=== PATIENT | female | born 1950 | race Caucasian/White ===

== ENCOUNTER 2016-11-11 20:30 | Observation (INO) | payer OTHER ==
[2016-11-11] MEDS ORDERED: ONDANSETRON 4 MG/2 ML VIAL ONE (20:50)
[2016-11-11] MEDS ORDERED: NS 1,000 ML IV ONE ×2 (20:55→21:02)
[2016-11-11] MEDS ORDERED: ONDANSETRON 4 MG/2 ML VIAL IVP ONE (20:55)
[2016-11-11] MEDS ORDERED: METOCLOPRAMIDE 10 MG/2 ML VIAL IVP ONE (21:19)
[2016-11-11 21:35] LABS: % IMMATURE GRANULYOCYTES 0.2 % (0.0-1.1); ABSOLUTE IMMATURE GRANULOCYTES 0.02 10^3/uL (0.00-0.10); ADD DIFF? NO; ADD MORPH? NO; ADD SCAN? NO; ATYPICAL LYMPHOCYTE FLAG 0 (0-99); FRAGMENT RBC FLAG 0 (0-99); HEMATOCRIT 43.7 % (38.0-47.0); LEFT SHIFT FLG 0 (0-99); LIPEMIA HEMOLYSIS FLAG 90 (0-99); MEAN CELL HEMOGLOBIN CONCENTR. 34.3 g/dL (32.4-36.7); MEAN CELL VOLUME 90.3 fL (81.5-99.8); MEAN PLATELET VOLUME 10.1 fL (8.7-11.7); PLATELET CLUMPS FLAG 0 (0-99); PLATELET COUNT 373 10^3/uL (150-400); RED BLOOD CELL COUNT 4.84 10^6/uL (4.18-5.33); RED CELL DISTRIBUTION WIDTH 13.2 % (11.5-15.2)
[2016-11-11] MEDS ORDERED: PROMETHAZINE HCL 25 MG/ML INJ ONE (21:38)
[2016-11-11 21:41] LABS: ANION GAP 12 mEq/L (8-16); CALCIUM 9.8 mg/dL (8.5-10.4); CARBON DIOXIDE 25 mEq/l (22-31); CHLORIDE 102 mEq/L (97-110); CREATININE 0.9 mg/dL (0.6-1.0); GLOMERULAR FILTRATION RATE > 60; GLUCOSE 114 mg/dL (70-100); POTASSIUM 4.7 mEq/L (3.5-5.2); SODIUM 139 mEq/L (134-144)
[2016-11-11 21:51] LABS: INR 1.05 (0.83-1.16); PROTIME(PATIENT) 13.6 SEC (12.0-15.0)
[2016-11-11] MEDS ORDERED: PROMETHAZINE HCL 25 MG/ML INJ IVP ONE (21:55)
[2016-11-11 22:03] LABS: COLOR PALE YELLOW; LEUKOCYTE ESTERASE,URINE TRACE (NEGATIVE); NITRITE,URINE NEGATIVE (NEGATIVE)
[2016-11-11 22:12] LABS: BACTERIA TRACE /hpf (NONE SEEN); MUCUS TRACE /lpf (NONE-1+)
--- NOTE | 2016-11-11 22:18 | EDPHY ---
H & P Stated Complaint: 48 hours of N and V, no diarrhea HPI/ROS: CHIEF COMPLAINT: Nausea vomiting HISTORY OF PRESENT ILLNESS: tooth extraction on the left upper molar on Wednesday morning. She was discharged home in stable condition with pain medications. Raymond well until yesterday morning when she woke up with significant nausea and vomiting. She has had intractable vomiting since that time with multiple episodes throughout the day. Unable to keep down any liquids or solids. No bloody emesis. No constipation or diarrhea. She has a headache that she attributes to the vomiting. She has no fever or chills. No chest pain or shortness of breath. No cough or congestion. No abdominal pain other than with the discomfort and vomiting. No bleeding from any site including the surgical bed. No other associated complaints or modifying factors. REVIEW OF SYSTEMS: Ten systems reviewed and are negative unless otherwise noted in the HPI EXAMINATION General Appearance: Alert, no distress Head: normocephalic, atraumatic Eyes: Pupils equal and round, no conjunctival pallor or injection ENT, Mouth: Mucous membranes Dry. No lesions. Uvula is midline. surgical bed is clean with sutures intact. No dehiscence. No purulence. No surrounding erythema. Neck: Normal inspection, supple, non-tender . painless passive and active range of motion in all planes. No meningismus. Respiratory: Lungs are clear to auscultation . No wheezing rhonchi or crackles. Cardiovascular: Regular rate and rhythm . No murmur. No gallop. Pulses are symmetric in the radial and DP. Gastrointestinal: Abdomen is soft and nontender . No distention Neurological: A&O, nonfocal, Strength is 5/5 in all limbs. Skin: Warm and dry, no rash . No petechiae purpura. Unable to examine the nails due to [place]. Extremities: Nontender, no pedal edema Psychiatric: Mood and affect normal DIFFERENTIAL DIAGNOSES: Including but not limited to Intractable nausea and vomiting, dehydration, postoperative complication, hypokalemia, hyponatremia MDM: 9:30 p.m.. Significant nausea and vomiting postprocedure. She has no fever, no white count, no evidence of pneumonia by examination. No evidence of infection of the mouth. She has no petechiae. She has no murmur on examination. She is feeling nauseated despite Zofran and Reglan, thus we will administer her promethazine. 11:00 p.m. I have re-evaluated this patient. They remain hemodynamically stable and in no distress. However she still remains nauseated and has no improvement or symptoms of any kind. There is no evidence of endocarditis or infection by examination. I am not certain where her source of nausea vomiting is, but her laboratory studies are stable. She is in no acute distress. She is hemodynamically stable. She has intractable nausea vomiting I will admit her for further care. 11:30 p.m. I have discussed the case with the hospitalist, Dr. Spangler. We will admit her for observation for intractable nausea and vomiting. She remains hemodynamically stable and she does not need telemetry. 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 SUPERVISION: Patient was evaluated in conjunction with the supervising physician. Please see their note for details. Source: Patient Exam Limitations: No limitations - Personal History Current Tetanus/Diphtheria Vaccine: Yes Current Tetanus Diphtheria and Acellular Pertussis (TDAP): Yes Tetanus Vaccine Date: within 5 years - Medical/Surgical History Hx Asthma: No Hx Chronic Respiratory Disease: No Hx Diabetes: No Hx Cardiac Disease: No Hx Renal Disease: No Hx Cirrhosis: No Hx Alcoholism: No Hx HIV/AIDS: No Hx Splenectomy or Spleen Trauma: No Other PMH: OSTEOPOROSIS, foot op, hand op, right eye op, SKIN CA., fecal transplant - Social History Smoking Status: Never smoked Constitutional: Initial Vital Signs Temperature (C) 98.4 F 11/11/16 20:35 Heart Rate 105 H 11/11/16 20:35 Respiratory Rate 16 11/11/16 20:35 Blood Pressure 116/95 H 11/11/16 20:35 O2 Sat (%) 98 11/11/16 20:35 O2 Delivery Mode Room Air O2 (L/minute) 2 Allergies/Adverse Reactions: Sulfa (Sulfonamide Antibiotics) Allergy (Mild, Verified 12/26/11 07:50) Rash clindamycin Allergy (Verified 05/05/14 16:30) caused CDIFF Home Medications: Medication Instructions Recorded ALPRAZolam [Xanax] 0.25 mg PO 05/05/14 Zofran 11/11/16 traMADol 11/11/16 Medical Decision Making - Data Points Laboratory Results: Laboratory Results 11/11/16 20:45 11/11/16 20:45 11/11/16 11/11/1617 21:50 21:41 20:45 WBC 8.29 10^3/uL (3.80-9.50) RBC 4.84 10^6/uL (4.18-5.33) Hgb 15.0 g/dL (12.6-16.3) Hct 43.7 % (38.0-47.0) MCV 90.3 fL (81.5-99.8) MCH 31.0 pg (27.9-34.1) MCHC 34.3 g/dL (32.4-36.7) RDW 13.2 % (11.5-15.2) Plt Count 373 10^3/uL (150-400) MPV 10.1 fL (8.7-11.7) Neut % (Auto) 78.1 H % (39.3-74.2) Lymph % (Auto) 16.8 % (15.0-45.0) [place] % (Auto) 3.9 L % (4.5-13.0) Eos % (Auto) 0.2 L % (0.6-7.6) Baso % (Auto) 0.8 % (0.3-1.7) Nucleat RBC Rel Count 0.0 % (0.0-0.2) Absolute Neuts (auto) 6.47 10^3/uL (1.70-6.50) Absolute Lymphs (auto) 1.39 10^3/uL (1.00-3.00) Absolute Monos (auto) 0.32 10^3/uL (0.30-0.80) Absolute Eos (auto) 0.02 L 10^3/uL (0.03-0.40) Absolute Basos (auto) 0.07 10^3/uL (0.02-0.10) Absolute Nucleated RBC 0.00 10^3/uL (0-0.01) Immature Gran % 0.2 % (0.0-1.1) Immature Gran # 0.02 10^3/uL (0.00-0.10) PT 13.6 SEC (12.0-15.0) INR 1.05 (0.83-1.16) APTT 27.0 SEC (23.0-38.0) VBG Lactic Acid 1.1 mmol/L (0.7-2.1) Sodium 139 mEq/L (134-144) Potassium 4.7 mEq/L (3.5-5.2) Chloride 102 mEq/L (97-110) Carbon Dioxide 25 mEq/l (22-31) Anion Gap 12 mEq/L (8-16) BUN 15 mg/dL (7-23) Creatinine 0.9 mg/dL (0.6-1.0) Estimated GFR > 60 Glucose 114 H mg/dL (70-100) Calcium 9.8 mg/dL (8.5-10.4) Total Bilirubin Pending AST Pending ALT Pending Alkaline Phosphatase Pending Total Protein Pending Albumin Pending Lipase Pending Urine Color PALE YELLOW Urine Appearance CLEAR Urine pH 6.0 (5.0-7.5) Ur Specific [place] 1.004 (1.002-1.030) Urine Protein NEGATIVE (NEGATIVE) Urine Ketones TRACE H (NEGATIVE) Urine Blood NEGATIVE (NEGATIVE) Urine Nitrate NEGATIVE (NEGATIVE) Urine Bilirubin NEGATIVE (NEGATIVE) Urine Urobilinogen NEGATIVE EU (0.2-1.0) Ur Leukocyte Esterase TRACE H (NEGATIVE) Urine RBC 1-3 /hpf (0-3) Urine WBC 1-3 /hpf (0-3) Ur Epithelial Cells NONE SEEN /lpf (NONE-1+) Urine Bacteria TRACE H /hpf (NONE SEEN) Urine Mucus TRACE /lpf (NONE-1+) Ur Culture Indicated? INDICATED H (NI) Urine Glucose NEGATIVE (NEGATIVE) Influenza Typ A,B (DFA) Pending Medications Given: Discontinued Medications Sodium Chloride (Ns) 1,000 mls @ 0 mls/hr IV EDNOW ONE PRN Reason: Wide Open Stop: 11/11/16 20:56 Last Admin: 11/11/16 20:56 Dose: 1,000 mls Sodium Chloride (Ns) 1,000 mls @ 0 mls/hr IV ONCE ONE PRN Reason: Wide Open Stop: 11/11/16 21:03 Last Admin: 11/11/16 21:21 Dose: 1,000 mls Metoclopramide HCl (Reglan Injection) 10 mg IVP EDNOW ONE Stop: 11/11/16 21:20 Last Admin: 11/11/16 21:31 Dose: 10 mg Ondansetron HCl (Zofran) 4 mg IVP EDNOW ONE Stop: 11/11/16 20:56 Last Admin: 11/11/16 20:56 Dose: 4 mg Promethazine HCl (Phenergan Injection) 12.5 mg IVP EDNOW ONE Stop: 11/11/16 21:56 Last Admin: 11/11/16 21:56 Dose: 12.5 mg Departure - Departure Disposition: [facility] Acute Clinical Impression: Dehydration Intractable vomiting with nausea Qualifiers: Vomiting type: unspecified Qualifier Code: (R11.2) Nausea with vomiting, unspecified Condition: Good
[2016-11-11 22:22] LABS: ALANINE AMINOTRANSFERASE 34 IU/L (9-52); ALBUMIN 4.4 g/dL (3.5-5.0); ALKALINE PHOSPHATASE 67 IU/L (38-126); ASPARTATE AMINOTRANSFERASE 32 IU/L (14-46); BILIRUBIN,TOTAL 0.8 mg/dL (0.1-1.4)
--- NOTE | 2016-11-11 23:05 | DX ---
PA and lateral chest. November 11, 2016. Clinical History: Nausea and vomiting. Dehydration. Comparison Study: January 13, 2005.. Findings: The lungs are clear. No pleural disease identified. Heart size is normal. Visualized osseous structures appear normal. Impression: Stable negative chest.
[2016-11-12] MEDS ORDERED: TEMAZEPAM 15 MG CAP PO PRN
[2016-11-12] MEDS ORDERED: METOCLOPRAMIDE 10 MG/2 ML VIAL IVP PRN
[2016-11-12] MEDS ORDERED: ONDANSETRON DISINTEGRATING 4 MG TAB PO PRN
[2016-11-12] MEDS ORDERED: PROMETHAZINE HCL 25 MG/ML INJ IVP PRN
[2016-11-12] MEDS ORDERED: ONDANSETRON 4 MG/2 ML VIAL IVP PRN
[2016-11-12] MEDS ORDERED: PROMETHAZINE HCL 25 MG TAB PO PRN
[2016-11-12] MEDS ORDERED: ACETAMINOPHEN 325 MG TAB PO PRN
[2016-11-12] MEDS ORDERED: hydrALAZINE 10 MG TAB PO PRN (00:04)
--- NOTE | 2016-11-12 00:09 | PDGENHP ---
History and Physical - Chief Complaint nausea/vomiting - History of Present Illness 66 yo female with no significant past medical history presents to ED with nausea and vomiting. She had a tooth extracted 2 days ago. This was planned to be a root canal, but she wound up with an extraction. She denies pain or drainage from the extraction site. She denies fevers. She had a mild headache earlier, but no headache at this time. No vision changes. No CP or SOB. No abdominal pain or diarrhea. She has been taking Tramadol and Zofran for pain control at home, last dose of Tramadol this morning. In the ED, she received Zofran, Phenergan, and Reglan without relief. She is admitted to the hospital for further management. History Information - Allergies/Home Medication List Allergies/Adverse Reactions: Sulfa (Sulfonamide Antibiotics) Allergy (Mild, Verified 12/26/11 07:50) Rash clindamycin Allergy (Verified 05/05/14 16:30) caused CDIFF Home Medications: ALPRAZolam [Xanax] 0.25 mg PO 05/05/14 [Last Taken Unknown] Zofran 11/11/16 [Last Taken Unknown] traMADol 11/11/16 [Last Taken Unknown] I have personally reviewed and updated: family history, medical history, social history, surgical history - Past Medical History Additional medical history: Osteoporosis, h/o fecal transplant - Surgical History Additional surgical history: foot surgery, hand surgery, eye surgery, recent tooth extraction - Family History Positive for: non-pertinent - Social History Smoking Status: Never smoked Alcohol Use: None Drug Use: None Review of Systems ROS: 10pt was reviewed & negative except for what was stated in HPI & below Physical Exam Temp Pulse Resp BP Pulse Ox 37.1 C 99 18 135/100 H 98 11/11/16 22:00 11/11/16 22:00 11/11/16 22:00 11/11/16 22:00 11/11/16 22:00 Constitutional: no apparent distress Eyes: PERRL Ears, Nose, Mouth, Throat: moist mucous membranes, other (left upper tooth extraction site without obvious abscess, no drainage) Cardiovascular: regular rate and rhythym, no murmur, rub, or gallop Respiratory: no respiratory distress, clear to auscultation Gastrointestinal: normoactive bowel sounds, soft, non-tender abdomen Skin: warm Neurologic: AAOx3 Psychiatric: interacting appropriately Lab Data & Imaging Review 11/11/16 20:45 11/11/16 20:45 WBC 8.29 10^3/uL (3.80-9.50) 11/11/16 20:45 RBC 4.84 10^6/uL (4.18-5.33) 11/11/16 20:45 Hgb 15.0 g/dL (12.6-16.3) 11/11/16 20:45 Hct 43.7 % (38.0-47.0) 11/11/16 20:45 MCV 90.3 fL (81.5-99.8) 11/11/16 20:45 MCH 31.0 pg (27.9-34.1) 11/11/16 20:45 MCHC 34.3 g/dL (32.4-36.7) 11/11/16 20:45 RDW 13.2 % (11.5-15.2) 11/11/16 20:45 Plt Count 373 10^3/uL (150-400) 11/11/16 20:45 MPV 10.1 fL (8.7-11.7) 11/11/16 20:45 Neut % (Auto) 78.1 % (39.3-74.2) H 11/11/16 20:45 Lymph % (Auto) 16.8 % (15.0-45.0) 11/11/16 20:45 [place] % (Auto) 3.9 % (4.5-13.0) L 11/11/16 20:45 Eos % (Auto) 0.2 % (0.6-7.6) L 11/11/16 20:45 Baso % (Auto) 0.8 % (0.3-1.7) 11/11/16 20:45 Nucleat RBC Rel Count 0.0 % (0.0-0.2) 11/11/16 20:45 Absolute Neuts (auto) 6.47 10^3/uL (1.70-6.50) 11/11/16 20:45 Absolute Lymphs (auto) 1.39 10^3/uL (1.00-3.00) 11/11/16 20:45 Absolute Monos (auto) 0.32 10^3/uL (0.30-0.80) 11/11/16 20:45 Absolute Eos (auto) 0.02 10^3/uL (0.03-0.40) L 11/11/16 20:45 Absolute Basos (auto) 0.07 10^3/uL (0.02-0.10) 11/11/16 20:45 Absolute Nucleated RBC 0.00 10^3/uL (0-0.01) 11/11/16 20:45 Immature Gran % 0.2 % (0.0-1.1) 11/11/16 20:45 Immature Gran # 0.02 10^3/uL (0.00-0.10) 11/11/16 20:45 PT 13.6 SEC (12.0-15.0) 11/11/16 20:45 INR 1.05 (0.83-1.16) 11/11/16 20:45 APTT 27.0 SEC (23.0-38.0) 11/11/16 20:45 VBG Lactic Acid 1.1 mmol/L (0.7-2.1) 11/11/16 21:41 Sodium 139 mEq/L (134-144) 11/11/16 20:45 Potassium 4.7 mEq/L (3.5-5.2) 11/11/16 20:45 Chloride 102 mEq/L (97-110) 11/11/16 20:45 Carbon Dioxide 25 mEq/l (22-31) 11/11/16 20:45 Anion Gap 12 mEq/L (8-16) 11/11/16 20:45 BUN 15 mg/dL (7-23) 11/11/16 20:45 Creatinine 0.9 mg/dL (0.6-1.0) 11/11/16 20:45 Estimated GFR > 60 11/11/16 20:45 Glucose 114 mg/dL (70-100) H 11/11/16 20:45 Calcium 9.8 mg/dL (8.5-10.4) 11/11/16 20:45 Total Bilirubin 0.8 mg/dL (0.1-1.4) 11/11/16 20:45 AST 32 IU/L (14-46) 11/11/16 20:45 ALT 34 IU/L (9-52) 11/11/16 20:45 Alkaline Phosphatase 67 IU/L (38-126) 11/11/16 20:45 Total Protein 8.0 g/dL (6.3-8.2) 11/11/16 20:45 Albumin 4.4 g/dL (3.5-5.0) 11/11/16 20:45 Lipase 61.0 IU/L (23-300) 11/11/16 20:45 Urine Color PALE YELLOW 11/11/16 21:50 Urine Appearance CLEAR 11/11/16 21:50 Urine pH 6.0 (5.0-7.5) 11/11/16 21:50 Ur Specific [place] 1.004 (1.002-1.030) 11/11/16 21:50 Urine Protein NEGATIVE (NEGATIVE) 11/11/16 21:50 Urine Ketones TRACE (NEGATIVE) H 11/11/16 21:50 Urine Blood NEGATIVE (NEGATIVE) 11/11/16 21:50 Urine Nitrate NEGATIVE (NEGATIVE) 11/11/16 21:50 Urine Bilirubin NEGATIVE (NEGATIVE) 11/11/16 21:50 Urine Urobilinogen NEGATIVE EU (0.2-1.0) 11/11/16 21:50 Ur Leukocyte Esterase TRACE (NEGATIVE) H 11/11/16 21:50 Urine RBC 1-3 /hpf (0-3) 11/11/16 21:50 Urine WBC 1-3 /hpf (0-3) 11/11/16 21:50 Ur Epithelial Cells NONE SEEN /lpf (NONE-1+) 11/11/16 21:50 Urine Bacteria TRACE /hpf (NONE SEEN) H 11/11/16 21:50 Urine Mucus TRACE /lpf (NONE-1+) 11/11/16 21:50 Ur Culture Indicated? INDICATED (NI) H 11/11/16 21:50 Urine Glucose NEGATIVE (NEGATIVE) 11/11/16 21:50 Influenza Typ A,B (DFA) NEGATIVE FOR FLU (NEGATIVE) 11/11/16 21:41 Assessment & Plan Assessment: Dehydration (Acute) Intractable nausea and vomiting (Acute) Will admit to observation status. Continue supportive care overnight with anti- emetics, IVF's. Will avoid opiates or partial opiates as I have some suspicion for side effects from the Tramadol. She is pain free at this time. Will also give IV Pepcid and check H pylori Ab. Should her symptoms persist, consider GI consult for consideration of EGD. Elevated BP - no prior h/o hypertension. Will give prn hydralazine for now and monitor DVT PPLX - SCD's, consider lovenox should she require a prolonged hospitalization. Full code Dispo - med surg obs
[2016-11-12] MEDS ORDERED: NS 1,000 ML IV SCH (00:15)
[2016-11-12] MEDS ORDERED: ONDANSETRON 4 MG/2 ML VIAL ONE (00:15)
[2016-11-12 01:23] VITALS: RESP 16
[2016-11-12] MEDS: FAMOTIDINE 20 MG/NACL 50 ML IV SCH ×2 (02:10→08:15)
[2016-11-12] MEDS ORDERED: HALOPERIDOL 0.5 MG TAB PO PRN (03:30)
[2016-11-12 08:14] VITALS: TEMP 98.5
[2016-11-12 11:14] VITALS: BP 142/84; PULSE 74; O2SAT 94
[2016-11-12] MEDS ORDERED: ALPRAZolam 0.25 MG TAB PO PRN (11:25)
--- NOTE | 2016-11-12 11:27 | HOSPPROG ---
Hospitalist Progress Note Assessment/Plan: Patient is a 66-year-old woman presented to the emergency room with nausea and vomiting. She recently had a tooth extracted approximately 2 days ago. She has been taking tramadol and Zofran for pain control at home emergency room she had Zofran Phenergan and Reglan without relief she was admitted for further care. Today is my 1st encounter with the patient. Chart reviewed. #. Intractable nausea and vomiting * history of fecal transplant * feeling better this afternoon * will try advancing diet #. Plan: dc home if eating and drinking well Subjective: Sonya has no complaints/ no further vomiting or nausea. Objective: Vital Signs Temp Pulse Resp BP Pulse Ox 36.9 C 74 16 142/84 H 94 11/12/16 08:00 11/12/16 11:11 11/12/16 11:11 11/12/16 11:11 11/12/16 11:11 11/11/16 11/12/16 11/13/16 05:59 05:59 05:59 Intake Total 2411 Balance 2411 PT 13.6 SEC (12.0-15.0) 11/11/16 20:45 INR 1.05 (0.83-1.16) 11/11/16 20:45 - Physical Exam Constitutional: no apparent distress, appears nourished, not in pain Eyes: PERRL Ears, Nose, Mouth, Throat: hearing normal Respiratory: no respiratory distress Skin: warm, normal color Musculoskeletal: full muscle strength Neurologic: AAOx3 Psychiatric: interacting appropriately ICD10 Worksheet Patient Problems: Problems Problem Status Diagnosed Dehydration Acute Intractable nausea and vomiting Acute
--- NOTE | 2016-11-12 13:53 | GDS ---
[f rep st] DISCHARGE SUMMARY DISCHARGE DIAGNOSIS: Intractable nausea and vomiting. HOSPITAL COURSE: Briefly, the patient is a very nice 66-year-old woman who presented to the emergenc y room with nausea and vomiting. This came on acutely after she had a tooth extracted approximately 2 days ago. She had been taking tramadol and Zofran for pain control at home. In the ER, she was gi jewel Zofran, Phenergan and Reglan without relief. She was admitted. During my evaluation today, she is tolerating chicken noodle soup and toast. She will be discharged home. I explained to her that i f this should reoccur again, to return to the emergency room. CONDITION AT DISCHARGE: Stable. Blood pressure is 142/84, heart rate 74, respiratory rate is 16, O2 saturation on room air at 94%, temperature 36.9 Celsius. DISCHARGE MEDICATIONS: Please see the EMR. DISCHARGE INSTRUCTIONS: Stay well hydrated. If she should develop any diarrhea with her history of C difficile, return to the ER. /[id number]/MODL
== END 2016-11-12 13:55 | disposition home or self-care (01) ==
LOC: F3E 11-12 01:28
PROVIDERS: ADMIT Hospitalist; ATTEND Family Medicine
DX: T81.89XA Other complications of procedures, not elsewhere classified, initial encounter (principal); R11.2 Nausea with vomiting, unspecified; E87.1 Hypo-osmolality and hyponatremia
CPT/HCPCS: 71020; 96361; 96374; 96375; 99285; G0378; J2405; J2550; J2765

== ENCOUNTER → 2017-01-15 | Outpatient (CLI) | payer OTHER | LOC: FIMAGING 07:57 | PROVIDERS: ATTEND Internal Medicine | DX: R10.11 Right upper quadrant pain (principal) | CPT/HCPCS: 78227; A9537 ==

== ENCOUNTER → 2017-03-26 | Outpatient (CLI) | payer OTHER | LOC: FIMAGING 10:54 | PROVIDERS: ATTEND Family Medicine | DX: M16.12 Unilateral primary osteoarthritis, left hip (principal) ==

== ENCOUNTER → 2017-10-25 | Outpatient (CLI) | payer OTHER ==
[~2017-10-25] MED LIST: IOPAMIDOL (ISOVUE-300) 100 ML BTL ONE
== END ==
LOC: FIMAGING 12:58
PROVIDERS: ATTEND Internal Medicine
DX: K59.00 Constipation, unspecified (principal)
CPT/HCPCS: 74177; Q9967

== ENCOUNTER 2017-12-14 19:52 | Emergency (ER) | payer OTHER ==
--- NOTE | 2017-12-14 21:05 | EDPHY ---
H & P Stated Complaint: "high BP", anxious, nose bleeds, bruising Time Seen by Provider: 12/14/17 20:52 HPI/ROS: CHIEF COMPLAINT: Hypertension HISTORY OF PRESENT ILLNESS: Patient is a 67-year-old female who is concerned because this week she had 2 bloody noses and some unusual bruising and her blood pressure has been higher than usual up to 150/90. She saw her Dr. Angle Mcdonald today who ordered blood work. No new medication was started. She did try taking statins earlier this month but they made her very nauseous so she stopped. She also complains that she sometimes feels like she has a lot of adrenaline and is not sure if it is a medical problem or she is anxious. She denies headaches. She denies chest pain. She denies shortness of breath. No focal weakness or deficits. No fever or trauma. REVIEW OF SYSTEMS: Constitutional: denies: chills, fever, recent illness, recent injury EENTM: denies: blurred vision, double vision, nose congestion Respiratory: denies: cough, shortness of breath Cardiac: denies: chest pain, irregular heart rate, lightheadedness, palpitations Gastrointestinal/Abdominal: denies: abdominal pain, diarrhea, nausea, vomiting, blood streaked stools Genitourinary: denies: dysuria, frequency, hematuria, pain Musculoskeletal: denies: joint pain, muscle pain Skin: denies: lesions, rash, jaundice, bruising Neurological: denies: headache, numbness, paresthesia, tingling, dizziness, weakness Hematologic/Lymphatic: denies: blood clots, easy bleeding, easy bruising Immunologic/allergic: denies: HIV/AIDS, transplant EXAM: GENERAL: Well-appearing, well-nourished and in no acute distress. HEAD: Atraumatic, normocephalic. EYES: Pupils equal round and reactive to light, extraocular movements intact, sclera anicteric, conjunctiva are normal. ENT: TMs normal, nares patent, oropharynx clear without exudates. Moist mucous membranes. NECK: Normal range of motion, supple without lymphadenopathy or JVD. LUNGS: Breath sounds clear to auscultation bilaterally and equal. No wheezes rales or rhonchi. HEART: Regular rate and rhythm without murmurs, rubs or gallops. ABDOMEN: Soft, nontender, normoactive bowel sounds. No guarding, no rebound. No masses appreciated. BACK: No CVA tenderness, no spinal tenderness, step-offs or deformities EXTREMITIES: Normal range of motion, no pitting or edema. No clubbing or cyanosis. NEUROLOGICAL: Cranial nerves II through XII grossly intact. Normal speech, normal gait. 5/5 strength, normal movement in all extremities, normal sensation PSYCH: Normal mood, normal affect. SKIN: Warm, dry, normal turgor, no visible rashes or lesions. Source: Patient Exam Limitations: No limitations - Personal History Current Tetanus Diphtheria and Acellular Pertussis (TDAP): Yes Tetanus Vaccine Date: within 5 years - Medical/Surgical History Hx Asthma: No Hx Chronic Respiratory Disease: No Hx Diabetes: No Hx Cardiac Disease: No Hx Renal Disease: No Hx Cirrhosis: No Hx Alcoholism: No Hx HIV/AIDS: No Hx Splenectomy or Spleen Trauma: No Other PMH: OSTEOPOROSIS, foot op, hand op, right eye op, SKIN CA., C-diff with fecal transplant - Family History Significant Family History: No pertinent family hx - Social History Smoking Status: Never smoked Alcohol Use: Sober Drug Use: None Constitutional: Initial Vital Signs Temperature (C) 36.4 C 12/14/17 19:55 Heart Rate 99 12/14/17 19:55 Respiratory Rate 20 12/14/17 19:55 Blood Pressure 166/111 H 12/14/17 19:55 O2 Sat (%) 97 12/14/17 19:55 O2 Delivery Mode Room Air Allergies/Adverse Reactions: Sulfa (Sulfonamide Antibiotics) Allergy (Mild, Verified 12/14/17 19:55) Rash clindamycin Allergy (Verified 12/14/17 19:55) caused CDIFF Home Medications: Medication Instructions Recorded ALPRAZolam [Xanax 0.25 MG (*)] 0.125 mg PO HS PRN 05/05/14 Herbals/Supplements -Info Only 1 ea PO DAILY 11/12/16 Ondansetron [Ondansetron Odt] 8 mg PO Q8H PRN 11/12/16 Medical Decision Making ED Course/Re-evaluation: The patient's blood pressure is now 140/80. She is asymptomatic. We discussed options. I will add a thyroid test to the blood work she already had done today. Otherwise her CBC and coags are normal. She is happy with this and declines any testing or workup here. I told her to continue to monitoring her blood pressure and follow up with Dr. Mcdonald. We discussed indications for returning. Differential Diagnosis: Partial list of the Differential diagnosis considered include but were not limited to; anxiety, hypertension, bleeding disorder, contusion, epistaxis and although unlikely based on the history and physical exam, I also considered infection, cancer, CVA, coronary disease. I discussed these differential diagnoses and the plan with the patient as well as the usual and expected course. The patient understands that the diagnosis is provisional and that in medicine we are not always correct and that further workup is often warranted. Usual and customary warnings were given. All of the patient's questions were answered. The patient was instructed to return to the emergency department should the symptoms at all worsen or return, otherwise to followup with the physician as we discussed. Departure - Departure Disposition: Home, Routine, Self-Care Clinical Impression: Anxiety Hypertension Qualifiers: Hypertension type: unspecified Qualified Code(s): I10 - Essential (primary) hypertension Condition: Fair Instructions: Hypertension (ED) Referrals: Angle Mcdonald MD [Primary Care Provider] - As per Instructions
[2017-12-14 21:15] VITALS: BP 131/79; PULSE 74; RESP 16; TEMP 98.1; O2SAT 94
== END 2017-12-14 21:12 | disposition home or self-care (01) ==
DX: I10 Essential (primary) hypertension (principal); F41.9 Anxiety disorder, unspecified; Z85.828 Personal history of other malignant neoplasm of skin

== ENCOUNTER 2017-12-17 00:12 | Emergency (ER) | payer OTHER ==
--- NOTE | 2017-12-17 00:30 | CPEKG ---
Heart Rate: 87 RR Interval: 690 P-R Interval: 176 QRSD Interval: 78 QT Interval: 380 QTC Interval: 457 P [place]: 45 QRS [place]: 21 T Wave [place]: 38 EKG Severity - ABNORMAL ECG - EKG Impression: SINUS RHYTHM EKG Impression: CONSIDER ANTEROSEPTAL INFARCT Electronically Signed By: Walter Hooks 17-Dec-2017 01:47:36
[2017-12-17 00:55] LABS: PLATELET COUNT 339 10^3/uL (150-400)
--- NOTE | 2017-12-17 01:03 | EDPHY ---
H & P Stated Complaint: chest tightness/sob since approx 2230 Time Seen by Provider: 12/17/17 00:23 HPI/ROS: Chief Complaint: Chest pain, hypertension HPI: 67-year-old woman with a history of hyperlipidemia the woke from sleep this morning with substernal chest pain. She has been having episodes of feeling unwell intermittently for the last 5 days. Symptoms began when she had a nose bleed 6 days ago. That resolved on its own. She again had a nosebleed following day went to Urgent Care but again it stop. She was seen by her primary care physician 4 days ago it was noted to be hypertensive. She had blood work done at that time and was sent home with planned home blood pressure monitoring. The following day she had an episode of general malaise and some mild shortness of breath. She checked her blood pressure was 180 systolic at that time. She presented here and her blood pressure was 1 40s. She declined any further evaluation at that time. This tonight she went to bed feeling normal. He denies the 1st time she had tightness in her chest pain at worst is an 8/10. She is feeling better now is about a 3/10. Is associated sweats some shortness of breath with the feeling that she can't catch her breath. No fevers or chills. No cough. No headache. No further nose bleeds. No nausea or vomiting. She has a history of hyperlipidemia. His not been taking any anti -lipid medications for the past 6 years. She does not have a history of hypertension in the past. ROS: 10 point Review of Systems is negative except as noted in the HPI. PMH: Hyperlipidemia Social History: No smoking, no alcohol, no recreational drug use Family History: No family history of coronary disease at a young age. Physical Exam: Gen: Awake, Alert, No Distress HEENT: Nose: no rhinorrhea Eyes: PERRLA, EOMI Mouth: Moist mucosa Neck: Supple, no JVD Chest: nontender, lungs clear to auscultation Heart: S1, S2 normal, no murmur Abd: Soft, non-tender, no guarding Back: no CVA tenderness, no midline tenderness Ext: no edema, non-tender Skin: no rash Neuro: CN II-XII intact, Sensation grossly intact, Strength 5/5 in bilateral upper and lower extremities - Personal History Tetanus Vaccine Date: within 5 years - Medical/Surgical History Hx Asthma: No Hx Chronic Respiratory Disease: No Hx Diabetes: No Hx Cardiac Disease: Yes Hx Renal Disease: No Hx Cirrhosis: No Hx Alcoholism: No Hx HIV/AIDS: No Hx Splenectomy or Spleen Trauma: No Other PMH: OSTEOPOROSIS, hyperlipidemia, osteoarthritis, anxiety, foot op, hand op, right eye op, SKIN CA., C-diff with fecal transplant - Social History Smoking Status: Never smoked Constitutional: Initial Vital Signs Temperature (C) 36.9 C 12/17/17 00:16 Heart Rate 86 12/17/17 00:16 Respiratory Rate 16 12/17/17 00:16 Blood Pressure 173/116 H 12/17/17 00:16 O2 Sat (%) 96 12/17/17 00:16 O2 Delivery Mode Room Air Allergies/Adverse Reactions: Sulfa (Sulfonamide Antibiotics) Allergy (Mild, Verified 12/17/17 00:19) Rash clindamycin Allergy (Verified 12/17/17 00:19) caused CDIFF Home Medications: Medication Instructions Recorded ALPRAZolam [Xanax 0.25 MG (*)] 0.125 mg PO HS PRN 05/05/14 Herbals/Supplements -Info Only 1 ea PO DAILY 11/12/16 Ondansetron [Ondansetron Odt] 8 mg PO Q8H PRN 11/12/16 traMADol 12/17/17 Medical Decision Making - Diagnostics EKG Interpretation: ECG time 12:27 a.m.. Sinus rhythm with a rate of 87, normal axis, there are Q- waves in V1 through V3 with poor R-wave progression. No acute ischemic changes. ECG is unchanged from 1 from 18 September 2010. Imaging Results: Chest x-ray is negative per my interpretation. Imaging: I viewed and interpreted images myself ED Course/Re-evaluation: 67-year-old with hyperlipidemia and is hypertensive presenting with chest pain which woke her up this morning. Pain was at 8/10. ECG shows some old Q-waves in the anterior septal region. Pain is improved here. She has gotten aspirin. Patient is telling that she did to [employer] likely spin class yesterday without any symptoms. Blood pressures come down to 140s on their own. Troponins negative. She has ECG changes but these are old and not acute. I have offered her admission for further workup but she is declining admission at this time. She understands that without serial troponins, ECGs and restrictive flank test that cannot rule out AK or acute coronary syndrome at this time. However given that she had taken a spin class yesterday and she has a normal troponin here at think it is unlikely to be acute cardiac ischemia. She has been given instructions return for any return of symptoms. She already has an appointment to follow up with primary care physician. - Data Points Laboratory Results: Laboratory Results 12/17/17 00:29 12/17/17 00:29 12/17/17 12/17/17 00: 00:29 WBC 9.00 10^3/uL 10^3/uL (3.80-9.50) RBC 4.53 10^6/uL 10^6/uL (4.18-5.33) Hgb 14.0 g/dL g/dL (12.6-16.3) Hct 41.8 % % (38.0-47.0) MCV 92.3 fL fL (81.5-99.8) MCH 30.9 pg pg (27.9-34.1) MCHC 33.5 g/dL g/dL (32.4-36.7) RDW 13.6 % % (11.5-15.2) Plt Count 339 10^3/uL 10^3/uL (150-400) MPV 10.1 fL fL (8.7-11.7) Neut % (Auto) 62.7 % % (39.3-74.2) Lymph % (Auto) 24.8 % % (15.0-45.0) [place] % (Auto) 8.0 % % (4.5-13.0) Eos % (Auto) 3.3 % % (0.6-7.6) Baso % (Auto) 1.0 % % (0.3-1.7) Nucleat RBC Rel Count 0.0 % % (0.0-0.2) Absolute Neuts (auto) 5.64 10^3/uL 10^3/uL (1.70-6.50) Absolute Lymphs (auto) 2.23 10^3/uL 10^3/uL (1.00-3.00) Absolute Monos (auto) 0.72 10^3/uL 10^3/uL (0.30-0.80) Absolute Eos (auto) 0.30 10^3/uL 10^3/uL (0.03-0.40) Absolute Basos (auto) 0.09 10^3/uL 10^3/uL (0.02-0.10) Absolute Nucleated RBC 0.00 10^3/uL 10^3/uL (0-0.01) Immature Gran % 0.2 % % (0.0-1.1) Immature Gran # 0.02 10^3/uL 10^3/uL (0.00-0.10) Sodium 144 mEq/L mEq/L (135-145) Potassium 4.1 mEq/L mEq/L (3.5-5.2) Chloride 106 mEq/L mEq/L (97-110) Carbon Dioxide 24 mEq/l mEq/l (22-31) Anion Gap 14 mEq/L mEq/L (8-16) BUN 25 mg/dL H mg/dL (7-23) Creatinine 0.8 mg/dL mg/dL (0.6-1.0) Estimated GFR > 60 Glucose 105 mg/dL H mg/dL (70-100) Calcium 10.2 mg/dL mg/dL (8.5-10.4) Troponin I < 0.012 ng/mL ng/mL (0.000-0.034) Medications Given: Discontinued Medications Aspirin (Aspirin) 324 mg PO EDNOW ONE Stop: 12/17/17 01:11 Last Admin: 12/17/17 01:34 Dose: 324 mg Ondansetron HCl (Zofran) 4 mg IVP EDNOW ONE Stop: 12/17/17 01:12 Last Admin: 12/17/17 01:35 Dose: 4 mg Departure - Departure Disposition: Home, Routine, Self-Care Clinical Impression: Chest pain, Hypertension Condition: Fair
[2017-12-17] MEDS ORDERED: ASPIRIN 81 MG CHEWABLE TAB PO ONE (01:10)
[2017-12-17] MEDS ORDERED: ONDANSETRON 4 MG/2 ML VIAL IVP ONE (01:11)
[2017-12-17] MEDS ORDERED: ACETAMINOPHEN 325 MG TAB PO PRN (01:44)
[2017-12-17] MEDS ORDERED: ONDANSETRON 4 MG/2 ML VIAL IVP PRN (01:44)
[2017-12-17] MEDS ORDERED: ONDANSETRON DISINTEGRATING 4 MG TAB PO PRN (01:44)
[2017-12-17] MEDS ORDERED: LORazepam 2 MG/ML INJ IVP ONE (02:05)
[2017-12-17 02:11] VITALS: RESP 18
[2017-12-17] MEDS ORDERED: LORazepam 1 MG TAB PO ONE (02:44)
[2017-12-17 02:57] VITALS: BP 136/92; PULSE 70; TEMP 98.1; O2SAT 93
[2017-12-17] MEDS ORDERED: ENOXAPARIN 40 MG/0.4 ML SYR SC SCH (09:00)
== END 2017-12-17 02:58 | disposition home or self-care (01) ==
LOC: UNDOADMOB 01:44
DX: R07.9 Chest pain, unspecified (principal); I10 Essential (primary) hypertension
CPT/HCPCS: 71046; 93005; 96374; 99285; J2405; J1650

== ENCOUNTER → 2017-12-30 | Outpatient (CLI) | payer OTHER | LOC: BHFA 13:00 | PROVIDERS: ATTEND Internal Medicine Interventional Cardiology | DX: R07.9 Chest pain, unspecified (principal) | CPT/HCPCS: 78452; 93017; A9500 ==

== ENCOUNTER → 2018-01-07 | Outpatient (CLI) | payer OTHER | LOC: BHFA 10:00 | PROVIDERS: ATTEND Internal Medicine Cardiovascular Disease | DX: R07.89 Other chest pain (principal); I10 Essential (primary) hypertension ==

== ENCOUNTER → 2018-01-26 | Outpatient (CLI) | payer OTHER | LOC: BMCIMAGING 07:37 | PROVIDERS: ATTEND Internal Medicine | DX: Z12.31 Encounter for screening mammogram for malignant neoplasm of breast (principal) ==

== ENCOUNTER 2018-02-03 10:20 | Emergency (ER) | payer OTHER ==
[2018-02-03] MEDS ORDERED: TRANEXAMIC ACID 1,000 MG/10 ML VIAL TP ONE (10:48)
--- NOTE | 2018-02-03 10:50 | EDPHY ---
H & P Time Seen by Provider: 02/03/18 10:43 HPI/ROS: CHIEF COMPLAINT: Right-sided nosebleed HISTORY OF PRESENT ILLNESS: 67-year-old female with no anticoagulant use arrives via private vehicle complaining of 45 min of right-sided epistaxis. Atraumatic. No headache. No nausea or vomiting. No dizziness. No syncope or near syncope. PHYSICAL EXAM (Prior to examination, patient consented to physical exam, hands were washed and my usual and customary physical exam procedures followed) 1) GENERAL: [Well-developed, well-nourished, alert and oriented. Appears anxious 2) HEAD: Normocephalic 3) HEENT: sclera anicteric. Right anterior region slow epistaxis. Oropharynx: Clear no bleeding. 4) LUNGS: Breathing comfortably. Smoking Status: Never smoked Constitutional: Initial Vital Signs Temperature (C) 36.5 C 02/03/18 10:25 Heart Rate 76 02/03/18 10:25 Respiratory Rate 17 02/03/18 10:25 Blood Pressure 167/104 H 02/03/18 10:25 O2 Sat (%) 94 02/03/18 10:25 O2 Delivery Mode Room Air Allergies/Adverse Reactions: Sulfa (Sulfonamide Antibiotics) Allergy (Mild, Verified 02/03/18 10:22) Rash clindamycin Allergy (Verified 02/03/18 10:22) caused CDIFF Home Medications: Medication Instructions Recorded ALPRAZolam [Xanax 0.25 MG (*)] 0.125 mg PO HS PRN 05/05/14 traMADol 12/17/17 Amlodipine Besylate 02/03/18 Propranolol HCl 02/03/18 MDM/Departure - MDM Medications Given: Discontinued Medications Tranexamic Acid (Cyklokapron) 500 mg TP EDNOW ONE Stop: 02/03/18 10:49 Last Admin: 02/03/18 10:54 Dose: Not Given ED Course/Re-evaluation: 10:49 a.m.: Patient appears anxious, currently has a very slow bleed right anterior region. Will plan on nasal pledgets soaked in TXA and re-evaluation.. 11:40 a.m.: Re-evaluation. TXA soaked pledget removed resulting in hemostasis. Patient has previously seen Dr. Narciso Maza ear nose and throat [facility]. Recommend she follow up with him or his partner. Usual and customary epistaxis precautions instructions provided. - Depart Disposition: Home, Routine, Self-Care Clinical Impression: Right-sided epistaxis Condition: Good Instructions: Nosebleed (ED) Additional Instructions: If you develop further episodes of nosebleed, place direct pressure for 20 minutes. If the bleeding continues, seek medical attention. Referrals: Narciso Maza MD [Medical Doctor] - As per Instructions
[2018-02-03 11:54] VITALS: BP 150/84
== END 2018-02-03 12:01 | disposition home or self-care (01) ==
DX: R04.0 Epistaxis (principal)

== ENCOUNTER 2018-06-21 14:51 | Emergency (ER) | payer OTHER ==
--- NOTE | 2018-06-21 15:29 | EDPHY ---
H & P Stated Complaint: fell and inj r wrist Time Seen by Provider: 06/21/18 15:13 HPI/ROS: CHIEF COMPLAINT: Right wrist pain HISTORY OF PRESENT ILLNESS: The patient presents the emergency department complaints of right wrist pain after mechanical fall earlier today. The patient did not strike her head or lose consciousness. She complains of pain in her right fingers and at the base of her right thumb. Her symptoms are worsened with rotation of the wrist. She denies additional acute injuries. Her pain is moderate in nature. REVIEW OF SYSTEMS: A comprehensive 10 point review of systems is otherwise negative aside from elements mentioned in the history of present illness. Source: Patient Exam Limitations: No limitations - Personal History Current Tetanus Diphtheria and Acellular Pertussis (TDAP): Unsure Tetanus Vaccine Date: within 5 years - Medical/Surgical History Hx Asthma: No Hx Chronic Respiratory Disease: No Hx Diabetes: No Hx Cardiac Disease: Yes Hx Renal Disease: No Hx Cirrhosis: No Hx Alcoholism: No Hx HIV/AIDS: No Hx Splenectomy or Spleen Trauma: No Other PMH: OSTEOPOROSIS, hyperlipidemia, osteoarthritis, anxiety, foot op, hand op, right eye op, SKIN CA., C-diff with fecal transplant mitral valve leak - Social History Smoking Status: Never smoked - Physical Exam Exam: General Appearance: Alert, no distress Head: Atraumatic Eyes: Pupils equal, round, reactive Neck: Nontender, trachea midline Respiratory: No chest wall tender, no subcutaneous air, lungs clear bilaterally Cardiovascular: Regular rate and rhythm Abdomen: Abdomen is soft and nontender, pelvis stable Skin: No lacerations, No abrasion Back: No midline T/L/S pain Extremities: Tenderness to palpation in the right anatomic snuffbox, tenderness to palpation in the 1st and 2nd fingers Neurological: GCS 15, 5/5 strength noted all 4 extremities, normal sensory exam noted to the right upper extremity Constitutional: Initial Vital Signs Temperature (C) 36.6 C 06/21/18 15:01 Heart Rate 60 06/21/18 15:01 Respiratory Rate 18 06/21/18 15:01 Blood Pressure 118/67 06/21/18 15:01 O2 Sat (%) 96 06/21/18 15:01 O2 Delivery Mode Room Air Allergies/Adverse Reactions: Sulfa (Sulfonamide Antibiotics) Allergy (Mild, Verified 06/21/18 15:01) Rash clindamycin Allergy (Verified 06/21/18 15:01) caused CDIFF pravastatin Allergy (Verified 06/21/18 15:01) Home Medications: Medication Instructions Recorded ALPRAZolam [Xanax 0.25 MG (*)] 0.125 mg PO HS PRN 05/05/14 traMADol 12/17/17 Amlodipine Besylate 02/03/18 Propranolol HCl 02/03/18 Medical Decision Making - Diagnostics Imaging Results: Imaging Impressions Wrist X-Ray 06/21/18 15:18 Impression: Negative right wrist radiographs for acute fracture. Hand X-Ray 06/21/18 15:20 Impression: Negative right hand radiographs. Degenerative changes. ED Course/Re-evaluation: The patient presents the ED for evaluation of right wrist and hand pain following mechanical fall. The patient was noted to have snuffbox tenderness. I appreciate no evidence of an obvious scaphoid fracture on her x-rays of the wrist. X-rays of the hand demonstrate no evidence of an acute fracture. The patient has been placed in ortho glass thumb spica splint given her snuffbox tenderness. I have asked her to follow up with our on-call orthopedic surgeon Dr. Gutierrez for recheck in the week. Differential Diagnosis: Differential diagnosis considered includes fracture, sprain, dislocation Departure - Departure Disposition: Home, Routine, Self-Care Clinical Impression: Wrist sprain Condition: Good Instructions: Wrist Sprain (ED) Additional Instructions: 1. Your x-ray demonstrates no evidence of an obvious fracture however you have tenderness over your scaphoid bone. Fractures of this bone can be difficult to diagnose initially. We are going to immobilize you in a splint. I would like you to follow up with the on-call orthopedic surgeon for a repeat x-ray in the next 7-10 days. Please remain immobilized until that time. It is imperative that you follow up with Orthopedic surgery to determine whether a small fracture is present. Referrals: Brayden Gutierrez MD [Medical Doctor] - As per Instructions
[2018-06-21 16:37] VITALS: BP 132/84
== END 2018-06-21 16:34 | disposition home or self-care (01) ==
PROC: 2W3CX1Z Immobilization of Right Lower Arm using Splint (ICD-10-PCS; principal; 2018-06-21)
DX: S63.501A Unspecified sprain of right wrist, initial encounter (principal); W19.XXXA Unspecified fall, initial encounter; Y99.8 Other external cause status

== ENCOUNTER 2018-07-10 07:20 | Emergency (ER) | payer OTHER ==
[2018-07-10 07:28] VITALS: BP 146/71
== END 2018-07-10 07:32 | disposition left against medical advice (07) ==
DX: Z53.21 Procedure and treatment not carried out due to patient leaving prior to being seen by health care provider (principal)

== ENCOUNTER 2018-07-10 21:00 | Emergency (ER) | payer OTHER ==
--- NOTE | 2018-07-10 21:06 | EDPHY ---
H & P Stated Complaint: HTN Time Seen by Provider: 07/10/18 21:05 HPI/ROS: CHIEF COMPLAINT: Labile hypertension HISTORY OF PRESENT ILLNESS: The patient presents to the ED with a 1 day history of labile hypertension. She has had systolic blood pressures as high as 180 at home. Patient had been in contact with a home paraprofessional who advised that she take extra amlodipine which she did. She also took a Xanax tablet. The patient reportedly had a high blood pressure again at home this evening which prompted her visit to the ED. She reported a systolic blood pressure of 180. The patient arrives to the emergency department and now has a normal blood pressure. She denies any chest pain, shortness of breath, headache, numbness or weakness or other concerns. REVIEW OF SYSTEMS: A comprehensive 10 point review of systems is otherwise negative aside from elements mentioned in the history of present illness. Source: Patient - Personal History Current Tetanus/Diphtheria Vaccine: Unsure Current Tetanus Diphtheria and Acellular Pertussis (TDAP): Unsure Tetanus Vaccine Date: within 5 years - Medical/Surgical History Hx Asthma: No Hx Chronic Respiratory Disease: No Hx Diabetes: No Hx Cardiac Disease: Yes Hx Renal Disease: No Hx Cirrhosis: No Hx Alcoholism: No Hx HIV/AIDS: No Hx Splenectomy or Spleen Trauma: No Other PMH: OSTEOPOROSIS, hyperlipidemia, osteoarthritis, anxiety, foot op, hand op, right eye op, SKIN CA., C-diff with fecal transplant mitral valve leak - Social History Smoking Status: Never smoked - Physical Exam Exam: General Appearance: Alert, no distress Eyes: Pupils equal and round no pallor or injection ENT, Mouth: Mucous membranes moist Respiratory: There are no retractions, lungs are clear to auscultation Cardiovascular: Regular rate and rhythm Gastrointestinal: Abdomen is soft and nontender, no masses, bowel sounds normal Neurological: A&O, normal motor function, normal sensory exam, normal cranial nerves Skin: Warm and dry, no rashes Musculoskeletal: Neck is supple nontender Extremities: symmetrical, full range of motion Psychiatric: Patient is oriented X 3, there is no agitation Constitutional: Initial Vital Signs Temperature (C) 36.8 C 07/10/18 21:02 Heart Rate 72 07/10/18 21:02 Respiratory Rate 16 07/10/18 21:02 Blood Pressure 137/72 H 07/10/18 21:02 O2 Sat (%) 95 07/10/18 21:02 O2 Delivery Mode Room Air Allergies/Adverse Reactions: Sulfa (Sulfonamide Antibiotics) Allergy (Mild, Verified 07/10/18 07:23) Rash clindamycin Allergy (Verified 07/10/18 07:23) caused CDIFF pravastatin Allergy (Verified 07/10/18 07:23) Home Medications: Medication Instructions Recorded ALPRAZolam [Xanax 0.25 MG (*)] 0.125 mg PO HS PRN 05/05/14 traMADol 12/17/17 Amlodipine Besylate 02/03/18 Propranolol HCl 02/03/18 Medical Decision Making ED Course/Re-evaluation: The patient's blood pressure is now 120/70 without any intervention. She presents to the ED with labile hypertension either from a blood pressure monitoring machine malfunction or potentially anxiety mediated phenomenon. I do not feel that additional workup is indicated at this point time. The patient would like to follow up with her regular home paraprofessional tomorrow. Departure - Departure Disposition: Home, Routine, Self-Care Clinical Impression: Hypertension Condition: Good Instructions: Hypertension (ED) Additional Instructions: 1. Please schedule a follow-up appointment with your home paraprofessional tomorrow to review your blood pressures and current blood pressure medications. 2. I do recommend taking your blood pressure monitoring machine with you to the cardiac appointment. Referrals: Angle Mcdonald MD [Primary Care Provider] - As per Instructions
[2018-07-10 21:35] VITALS: BP 127/72
== END 2018-07-10 21:36 | disposition home or self-care (01) ==
DX: I10 Essential (primary) hypertension (principal)

== ENCOUNTER → 2019-01-02 | Outpatient (CLI) | payer OTHER | LOC: BMCIMAGING 13:56 | PROVIDERS: ATTEND Internal Medicine | DX: R07.81 Pleurodynia (principal) | CPT/HCPCS: 71101-PO ==

== ENCOUNTER → 2019-01-09 | Outpatient (CLI) | payer OTHER | LOC: BHFA 13:15 | PROVIDERS: ATTEND Internal Medicine Cardiovascular Disease | DX: I34.0 Nonrheumatic mitral (valve) insufficiency (principal) ==